=== PATIENT | female | born 1990 | race Caucasian/White ===

== ENCOUNTER 2022-02-19 21:35 | Emergency (ER) | payer SELFPAY ==
[~2022-02-19] VITALS: Ht 144.8 cm; Wt 72.8 kg
[2022-02-19] MEDS ORDERED: VISCOUS LIDOCAINE 2% 15 ML UDC MM STA (23:15)
[2022-02-20 00:20] VITALS: BP 124/78
== END 2022-02-20 00:21 | disposition home or self-care (01) ==
LOC: ER 21:35
DX: T16.2XXA Foreign body in left ear, initial encounter (principal); X58.XXXA Exposure to other specified factors, initial encounter; Y93.89 Activity, other specified; Y92.89 Other specified places as the place of occurrence of the external cause; Y99.8 Other external cause status; H92.02 Otalgia, left ear
CPT/HCPCS: 99281